=== PATIENT | female | born 1960 | race Caucasian/White ===

== ENCOUNTER → 2016-11-24 | Outpatient (CLI) | payer BC, OTHER ==
[~2016-11-24] MED LIST: BND25 PO; HYDR12.56 PO; NRN/300 PO; TRMO115 TOP
== END | disposition home or self-care (01) ==
LOC: C.LABSPEC 12:46
PROVIDERS: ATTEND Dermatology
DX: R21 Rash and other nonspecific skin eruption (principal)

== ENCOUNTER → 2016-12-07 | Outpatient (CLI) | payer BC, OTHER ==
--- NOTE | 2016-12-08 14:24 | MAMMOGRAPHY REPORT ---
BILATERAL DIGITAL SCREENING MAMMOGRAM TOMOSYNTHESIS WITH CAD: 12/07/2016 CLINICAL HISTORY: Routine screening. Patient has no complaints. TECHNIQUE: Breast tomosynthesis in addition to standard 2D mammography was performed. Current study was also evaluated with a Computer Aided Detection (CAD) system. COMPARISON: Comparison is made to exams dated: 07/02/2015 mammogram, 01/25/2014 mammogram, 12/21/2012 m ammogram, 11/30/2010 mammogram, 11/19/2009 mammogram - [facility], and 10/21/2008. BREAST COMPOSITION: The tissue of both breasts is almost entirely fatty. FINDINGS: No suspicious mass, architectural distortion or cluster of microcalcifications is seen. IMPRESSION: ACR BI-RADS CATEGORY 1: NEGATIVE There is no mammographic evidence of malignancy. A 1 year screening mammogram is recommended. The p atient will receive written notification of the results. Approximately 10% of breast cancers are not detected with mammography. A negative mammographic repor t should not delay biopsy if a clinically suggestive mass is present. Alexia song/brea:12/07/2016 16:49:22 Jig And Fixture Repairer: Aster ROSA(R)(M)(BD), [facility] letter sent: Normal 1/2 BI-RADS Code: ACR BI-RADS Category 1: Negative
== END | disposition home or self-care (01) ==
LOC: C.MAMM 13:27
PROVIDERS: ATTEND Family Medicine
DX: Z12.31 Encounter for screening mammogram for malignant neoplasm of breast (principal)

== ENCOUNTER 2017-02-09 11:07 | Emergency (ER) | payer BC, OTHER ==
[~2017-02-09] VITALS: Ht 174 cm; Wt 107.2 kg
[2017-02-09 11:14] VITALS: TEMP 36.4; Ht 174 cm; Wt 107.2 kg
[2017-02-09 11:28] VITALS: O2SAT 95
[2017-02-09] MEDS ORDERED: FENTANYL CITRATE INJ 50 MCG/1 ML 2 ML VIAL IV STA (12:00)
[2017-02-09] MEDS ORDERED: HydrALAZINE HCL 20 MG/ML VIAL IV. STA (12:00)
[2017-02-09] MEDS ORDERED: NRN/300 PO (12:07)
[2017-02-09] MEDS ORDERED: TRMO115 TOP (12:07)
[2017-02-09] MEDS ORDERED: BND25 PO (12:07)
--- NOTE | 2017-02-09 12:19 | EMERGENCY ROOM VISIT NOTE ---
History Report prepared by Annabelle: Donte Saul Under the Supervision of: Dr. Renee Land M.D. First contact with patient: 11:45 Chief Complaint: HYPERTENSION Stated Complaint: ROSADO, HIGH BLOOD PRESSURE-TESTED AT SCHOOL History of Present Illness The patient is a 56 year old female who presents to the Emergency Room with complaints of persistent headache that she woke up with this morning. She also complains of pressure in her face. The patient also notes that her blood pressure was high and the school nurse recommended she present to the ED for further evaluation. The patient was recently admitted and discharged from [facility] because her hands had turned blue and were progressively worsening. They did a CT scan of her chest there which shower a normal thoracic aorta, no PE, and was essentially a normal scan. She denies pain in her hands and feet at this time. The patient is currently being treated for a persistent 6-month rash which is being treated with dapsone and gabapentin. The patient also notes that her stool has been yellow-colored which she thinks might be a side effect of the medication. She denies chest pain, back pain or shortness of breath at this time. Source of History: patient Onset: this morning Position: head Timing: other (persistent) Associated Symptoms: + rash, No SOB, No back pain, No chest pain Note: Other associated symptoms: high blood pressure, hands turning blue Review of Systems See HPI for pertinent positives & negatives. A total of 10 systems reviewed and were otherwise negative. Past Medical & Surgical Medical Problems: (1) Asthma (2) Bronchitis (3) Gastritis Family History Diabetes mellitus FH: cancer FH: heart disease Social History Smoking Status: Never Smoker Alcohol Use: none Housing Status: lives with family Occupation Status: employed Current/Historical Medications Scheduled Diphenhydramine Hcl (Benadryl), 25 MG PO Q4H Gabapentin (Neurontin), 300 MG PO HS Hydrochlorothiazide (Hctz), 1 CAP PO DAILY Triamcinolone Acet (Triamcinolone Acetonide), 1 APPLN TOP BID Allergies Coded Allergies: Aspirin (Unverified Allergy, Severe, sob, 02/09/17) NSAIDs (Unverified Allergy, Severe, sob, 02/09/17) Naproxen (Unverified Allergy, Severe, sob, 02/09/17) Physical Exam Vital Signs Date Time Temp Pulse Resp B/P Pulse Ox O2 Delivery O2 Flow Rate FiO2 3/22/17 15:03 76 18 136/85 97 02/09/17 14:04 76 18 116/73 96 Room Air 02/09/17 13:32 77 18 130/70 98 Room Air 02/09/17 13:28 76 02/09/17 12:54 78 18 126/77 96 Room Air 02/09/17 12:34 78 18 105/70 93 Room Air 02/09/17 12:31 69 18 116/78 97 Room Air 02/09/17 11:32 80 18 164/112 99 Room Air 02/09/17 11:31 87 02/09/17 11:28 95 Room Air 02/09/17 11:14 36.4 76 18 170/116 96 Room Air Physical Exam Vital signs reviewed. General: Well-appearing female, in no significant distress. HEENT: No scleral icterus, PERRLA, neck supple. Atraumatic. Cardiovascular: Noted to be hypertensive, no extra sounds. Pulmonary: Clear to auscultation bilaterally, normal work of breathing. Abdomen: Soft, nontender, nondistended, positive bowel sounds. Musculoskeletal: Atraumatic, no peripheral edema. Neurologic: Patient awake alert and oriented x 3, full strength in all 4 extremities. Cranial nerves 2 through 12 grossly intact. Skin: Warm, dry, no rash, mildly cyanotic bilateral digits, cool to touch with normal capillary refill. Medical Decision & Procedures ER Provider Diagnostic Interpretation: X-ray results as stated below per my interpretation and radiologist interpretation. Other radiology results as stated below per my review and radiologist interpretation: HEAD CT NONCONTRAST CT DOSE: 687.98 mGy.cm HISTORY: Headache. Hypertension. TECHNIQUE: Multiaxial CT images of the head were performed without the use of intravenous contrast. Automated exposure control was utilized for this study. Comparison: None. Findings: There is a small retention cyst within the left sphenoid sinus. No fluid levels within the paranasal sinuses. The The calvarium and skull base are intact. The ventricles and sulci are within normal limits. There is no mass, hematoma, midline shift, or acute infarct. Incidental note is made of a cavum septa pellucida. Impression: No acute intracranial abnormality. Electronically signed by: Bib Duncan M.D. 02/09/2017 1:06 PM Dictated Date/Time: 02/09/2017 12:56 PM CHEST ONE VIEW PORTABLE CLINICAL HISTORY: HTN dyspnea COMPARISON STUDY: No previous studies for comparison. FINDINGS: Subtle interstitial infiltrate left lung base. Lungs otherwise appear clear. No evidence for cardiac enlargement. Diaphragms smooth. IMPRESSION: Minimal interstitial infiltrate left lung base Electronically signed by: Sim Damon M.D. 02/09/2017 12:20 PM Dictated Date/Time: 02/09/2017 12:19 PM Laboratory Results 02/09/17 12:40 Red Blood Count 4.53, Mean Corpuscular Volume 90.9, Mean Corpuscular Hemoglobin 30.9, Mean Corpuscular Hemoglobin Concent 34.0, Mean Platelet Volume 11.1, Neutrophils (%) (Auto) 74.2, Lymphocytes (%) (Auto) 13.8, Monocytes (%) (Auto) 7.2, Eosinophils (%) (Auto) 4.1, Basophils (%) (Auto) 0.4, Neutrophils # (Auto) 5.07, Lymphocytes # (Auto) 0.94, Monocytes # (Auto) 0.49, Eosinophils # (Auto) 0.28, Basophils # (Auto) 0.03 02/09/17 11:25 Test 02/09/17 11:25 02/09/17 12:40 02/09/17 12:51 Anion Gap 8.0 mmol/L (3-11) Est Creatinine Clear Calc Drug Dose 82.2 ml/min Estimated GFR () 73.5 Estimated GFR (Non- 63.4 BUN/Creatinine Ratio 12.6 (10-20) Calcium Level 8.5 mg/dl (8.5-10.1) Magnesium Level 2.1 mg/dl (1.8-2.4) Total Bilirubin 0.9 mg/dl (0.2-1) Direct Bilirubin 0.2 mg/dl (0-0.2) Aspartate Amino Transf (AST/SGOT) 24 U/L (15-37) Alanine Aminotransferase (ALT/SGPT) 41 U/L (12-78) Alkaline Phosphatase 67 U/L (45-117) Total Creatine Kinase 93 U/L (26-192) Creatine Kinase MB 1.8 ng/ml (0.5-3.6) Creatine Kinase MB Ratio 1.9 (0-3.0) Total Protein 7.4 gm/dl (6.4-8.2) Albumin 3.8 gm/dl (3.4-5.0) White Blood Count 6.83 K/uL (4.8-10.8) Red Blood Count 4.53 M/uL (4.2-5.4) Hemoglobin 14.0 g/dL (12.0-16.0) Hematocrit 41.2 % (37-47) Mean Corpuscular Volume 90.9 fL (80-100) Mean Corpuscular Hemoglobin 30.9 pg (25-34) Mean Corpuscular Hemoglobin Concent 34.0 g/dl (32-36) Platelet Count 206 K/uL (130-400) Mean Platelet Volume 11.1 fL (7.4-10.4) Neutrophils (%) (Auto) 74.2 % Lymphocytes (%) (Auto) 13.8 % Monocytes (%) (Auto) 7.2 % Eosinophils (%) (Auto) 4.1 % Basophils (%) (Auto) 0.4 % Neutrophils # (Auto) 5.07 K/uL (1.4-6.5) Lymphocytes # (Auto) 0.94 K/uL (1.2-3.4) Monocytes # (Auto) 0.49 K/uL (0.11-0.59) Eosinophils # (Auto) 0.28 K/uL (0-0.5) Basophils # (Auto) 0.03 K/uL (0-0.2) RDW Standard Deviation 45.5 fL (36.4-46.3) RDW Coefficient of Variation 13.6 % (11.5-14.5) Immature Granulocyte % (Auto) 0.3 % Immature Granulocyte # (Auto) 0.02 K/uL (0.00-0.02) Bedside Troponin I 0.000 ng/ml (0-0.045) Laboratory results per my review. Medications Administered Medications (Trade) Dose Ordered Sig/Stephanie Route Start Time Stop Time Status Last Admin Dose Admin Hydralazine HCl (HydrALAZINE INJ) 10 mg NOW STAT IV. 02/09/17 12:00 02/09/17 12:06 DC 02/09/17 12:26 10 MG Fentanyl Citrate (Fentanyl Inj) 100 mcg NOW STAT IV 02/09/17 12:00 02/09/17 12:06 DC 02/09/17 12:26 100 MCG ECG Indication: other Rate (beats per minute): 82 Rhythm: normal sinus Findings: no acute ischemic change, no ectopy ED Course 1156: Past medical records reviewed. The patient was evaluated in room A2. A complete history and physical examination was performed. 1200: Ordered Fentanyl Inj 100 mcg IV, Hydralazine HCl 10 mg IV. 1401: Upon reevaluation, the patient resting comfortably. I discussed findings with her. She verbalized agreement of the treatment plan. She was discharged home. Medical Decision Differential diagnoses: Aortic dissection, PE, Raynaud's phenomenon, autoimmune abnormality, infectious etiologies, hypertensive urgency, anxiety, or cardiac arrhythmia. This pt was evaluated and appeared to be in no distress. IV access was obtained and lab work was drawn. Records were obtained from the OSH regarding the pt's admission this week. CT scan of the chest was negative for PE and any aortic abnl. Pt lab work is fairly unremarkable today. After IV fentanyl and hydralazine, the pt seemed to appear improved. The cyanotic appearance of the hands diminished. I am thinking this is r/t HTN or a vasospasm. Case management has made an appt with rheumatology in follow up and pt has been started on HCTZ 12.5 mg daily. She was asked to see her PCP this week for BP recheck and med management. Pt will return to the ED for worsening of symptoms or any medical concerns. Impression Primary Impression: Hypertension Additional Impression: Headache Scribe Attestation The scribe's documentation has been prepared under my direction and personally reviewed by me in its entirety. I confirm that the note above accurately reflects all work, treatment, procedures, and medical decision making performed by me. Departure Information Dispostion Home / Self-Care Prescriptions Hydrochlorothiazide (HCTZ) 12.5 Mg Cap 1 CAP PO DAILY for 30 Days, #30 CAP 5 Refills Prov: Renee Land M.D. 02/09/17 Referrals Terence Ford DO (PCP) Forms HOME CARE DOCUMENTATION FORM, IMPORTANT VISIT INFORMATION, WORK / SCHOOL INSTRUCTIONS Patient Instructions [facility] Additional Instructions Diagnosis: Hypertension, headache Hydrochlorothiazide 12.5 mg once daily. Follow-up with your physician within one week for reevaluation and blood pressure management. Follow-up with rheumatology as scheduled by case management. Return to the ER for worsening of symptoms or any medical concerns. Problem Qualifiers Primary Impression: Hypertension Hypertension type: essential hypertension Qualified Codes: I10 - Essential ( primary) hypertension Additional Impression: Headache Headache type: tension-type Headache chronicity pattern: acute headache Intractability: not intractable Qualified Codes: G44.209 - Tension-type headache, unspecified, not intractable
--- NOTE | 2017-02-09 12:22 | DIAGNOSTIC IMAGING REPORT ---
CHEST ONE VIEW PORTABLE CLINICAL HISTORY: HTN dyspnea COMPARISON STUDY: No previous studies for comparison. FINDINGS: Subtle interstitial infiltrate left lung base. Lungs otherwise appear clear. No evidence for cardiac enlargement. Diaphragms smooth. IMPRESSION: Minimal interstitial infiltrate left lung base Electronically signed by: Sim Damon M.D. 02/09/2017 12:20 PM Dictated Date/Time: 02/09/2017 12:19 PM
[2017-02-09 12:28] LABS: BUN/CREATININE RATIO 12.6 (10-20); CALCIUM 8.5 mg/dl (8.5-10.1); MAGNESIUM 2.1 mg/dl (1.8-2.4); POTASSIUM 3.4 mmol/L (3.5-5.1)
[2017-02-09 12:33] LABS: CKMB/CK RATIO 1.9 (0-3.0)
[2017-02-09 12:52] LABS: BASO % 0.4 %; BASO ABS # 0.03 K/uL (0-0.2); COMPLETE YES; EOS % 4.1 %; HEMATOCRIT 41.2 % (37-47); IG% 0.3 %; LYMPH % 13.8 %; LYMPH ABS # 0.94 K/uL (1.2-3.4); MEAN CELL VOLUME 90.9 fL (80-100); MEAN CORPUSCULAR HEMOGLOBIN 30.9 pg (25-34); MEAN PLATELET VOLUME 11.1 fL (7.4-10.4); MONO % 7.2 %; NEUT % 74.2 %; PLATELET COUNT 206 K/uL (130-400); RED BLOOD COUNT 4.53 M/uL (4.2-5.4); WHITE BLOOD COUNT 6.83 K/uL (4.8-10.8)
--- NOTE | 2017-02-09 13:07 | DIAGNOSTIC IMAGING REPORT ---
HEAD CT NONCONTRAST CT DOSE: 687.98 mGy.cm HISTORY: Headache. Hypertension. TECHNIQUE: Multiaxial CT images of the head were performed without the use of intravenous contrast. Automated exposure control was utilized for this study. Comparison: None. Findings: There is a small retention cyst within the left sphenoid sinus. No fluid levels within the paranasal sinuses. The The calvarium and skull base are intact. The ventricles and sulci are within normal limits. There is no mass, hematoma, midline shift, or acute infarct. Incidental note is made of a cavum septa pellucida. Impression: No acute intracranial abnormality. Electronically signed by: Bib Duncan M.D. 02/09/2017 1:06 PM Dictated Date/Time: 02/09/2017 12:56 PM
[2017-02-09] MEDS ORDERED: HYDR12.56 PO (14:46)
[2017-02-09 15:03] VITALS: BP 136/85; PULSE 76; O2SAT 97
== END 2017-02-09 15:04 | disposition home or self-care (01) ==
LOC: C.EDB 11:08 → C.EDA 15:04
DX: I10 Essential (primary) hypertension (principal); G44.209 Tension-type headache, unspecified, not intractable; J45.909 Unspecified asthma, uncomplicated; K29.70 Gastritis, unspecified, without bleeding; Z83.3 Family history of diabetes mellitus; Z80.9 Family history of malignant neoplasm, unspecified; Z82.49 Family history of ischemic heart disease and other diseases of the circulatory system; Z79.899 Other long term (current) drug therapy

== ENCOUNTER → 2017-07-16 | Outpatient (CLI) | payer BC, OTHER ==
[2017-07-19 17:45] LABS: GAMMA GLOBULIN 1.1 G/DL (0.8-1.7); TOTAL PROTEIN 6.7 G/DL (6.2-8.3)
== END | disposition home or self-care (01) ==
LOC: C.LAB 12:49
PROVIDERS: ATTEND Internal Medicine Rheumatology
DX: R76.8 Other specified abnormal immunological findings in serum (principal); R79.89 Other specified abnormal findings of blood chemistry

== ENCOUNTER → 2017-08-17 | Outpatient (CLI) | payer BC, OTHER ==
--- NOTE | 2017-08-17 15:30 | MAMMOGRAPHY REPORT ---
UNILATERAL LEFT DIGITAL DIAGNOSTIC MAMMOGRAM TOMOSYNTHESIS WITH CAD AND TARGETED LEFT ULTRASOUND: 07/23 CLINICAL HISTORY: 56-year-old woman presents with a new small round lump in the lower inner quadrant of the left breast. No skin changes or nipple discharge. TECHNIQUE: Left breast tomosynthesis in addition to standard 2D mammography was performed. Current st udy was also evaluated with a Computer Aided Detection (CAD) system. COMPARISON: Comparison is made to exams dated: 12/07/2016 mammogram, 07/02/2015 mammogram, 01/25/2014 ma mmogram, 12/21/2012 mammogram, 12/06/2011 mammogram, and 11/30/2010 mammogram - [facility]. BREAST COMPOSITION: The tissue of the left breast is almost entirely fatty. FINDINGS: A triangular palpable marker was placed on the skin overlying the lower inner quadrant of t he left breast, denoting the palpable lump pointed out by the patient. There is no evidence of a new suspicious mass, architectural distortion, asymmetry or cluster of microcalcifications in the left b reast. Targeted ultrasound was performed in the area of palpable lump pointed out by the patient, in the 6:3 0 to 7:00 left breast, 10 cm from the nipple. On palpation, there is soft nodular mobile tissue, mos t likely representing prominent fat lobules. On ultrasound, there is sonographically normal tissue w ithout evidence of a discrete solid or cystic mass. IMPRESSION: ACR BI-RADS CATEGORY 1: NEGATIVE, TARGETED ULTRASOUND ACR BI-RADS CATEGORY 1: NEGATIVE There is no suspicious mammographic or targeted sonographic abnormality in the lower inner quadrant o f the left breast to explain the new palpable lump pointed out by the patient. Overall, there is no mammographic or targeted sonographic evidence of malignancy. Continued clinical follow-up is recomme nded, as biopsy of a clinically suspicious mass should not be precluded by negative imaging. Otherwi se, recommend return to annual screening mammography schedule. Approximately 10% of breast cancers are not detected with mammography. A negative mammographic report should not delay biopsy if a clinically suggestive mass is present. Alexia Brandon M.D. ay/:08/17/2017 14:54:33 Waste Minimization Technician: Teresa Marrero, [facility] letter sent: Normal 1/2 BI-RADS Code: ACR BI-RADS Category 1: Negative Ultrasound BI-RADS: ACR BI-RADS Category 1: Negative
== END | disposition home or self-care (01) ==
LOC: C.MAMM 14:30
PROVIDERS: ATTEND Family Medicine
DX: N63 Unspecified lump in breast (principal)

== ENCOUNTER → 2017-12-19 | Outpatient (CLI) | payer BC, OTHER ==
[~2017-12-19] MED LIST changes: -BND25 PO; +DIPH25CA5 PO
--- NOTE | 2017-12-20 14:39 | MAMMOGRAPHY REPORT ---
BILATERAL DIGITAL SCREENING MAMMOGRAM TOMOSYNTHESIS WITH CAD: 12/19/2017 CLINICAL HISTORY: Routine screening. Patient has no complaints. TECHNIQUE: Breast tomosynthesis in addition to standard 2D mammography was performed. Current study was also evaluated with a Computer Aided Detection (CAD) system. COMPARISON: Comparison is made to exams dated: 08/17/2017 ultrasound, 08/17/2017 mammogram, 12/07/2016 mammogram, 07/02/2015 mammogram, 01/25/2014 mammogram, and 12/21/2012 mammogram - [facility] enter. BREAST COMPOSITION: The tissue of both breasts is almost entirely fatty. FINDINGS: No suspicious masses, calcifications, or areas of architectural distortion are noted in ei ther breast. There has been no significant interval change compared to prior exams. IMPRESSION: ACR BI-RADS CATEGORY 1: NEGATIVE There is no mammographic evidence of malignancy. A 1 year screening mammogram is recommended. The pa tient will receive written notification of the results. Approximately 10% of breast cancers are not detected with mammography. A negative mammographic report should not delay biopsy if a clinically suggestive mass is present. Antonia Zuñiga M.D. /:12/19/2017 16:00:53 Violin Mechanic: Liseth ROSA(Dequan)(M), [facility] letter sent: Normal 1/2 BI-RADS Code: ACR BI-RADS Category 1: Negative
== END | disposition home or self-care (01) ==
LOC: C.MAMM 15:34
PROVIDERS: ATTEND Family Medicine
DX: Z12.31 Encounter for screening mammogram for malignant neoplasm of breast (principal)

== ENCOUNTER 2018-01-20 19:50 | Emergency (ER) | payer BC, OTHER ==
[~2018-01-20] VITALS: Ht 174 cm; Wt 102.7 kg
[2018-01-20 19:57] VITALS: TEMP 36.8; Ht 174 cm; Wt 102.7 kg
[2018-01-20] MEDS ORDERED: ALBUT/IPRATROP 3MG/0.5MG NEB 3 ML VIAL INH STA (20:30)
[2018-01-20] MEDS ORDERED: BENZONATATE 100MG CAP PO ONE (20:30)
[2018-01-20] MEDS ORDERED: ACETAMINOPHEN 500 MG TAB PO STA (20:30)
[2018-01-20] MEDS ORDERED: COUGH DROP (SUGAR FREE) LOZ 24 LOZ/1 BOX LOZ STA (20:30)
--- NOTE | 2018-01-20 20:33 | EMERGENCY ROOM VISIT NOTE ---
History Report prepared by Annabelle: Darwin Jones Under the Supervision of: Dr. Mario Alberto Cortes M.D. First contact with patient: 20:05 Chief Complaint: COUGH Stated Complaint: COUGH History of Present Illness The patient is a 57 year old white female with a past medical history of asthma , ACL repair, and bronchitis who presents to the ED with a cc of a constant cough beginning four days ago. Pt has been on Augmentin for the past four days. Pt has tried her inhaler, Mucinex, and cough syrup, nothing makes her symptoms better. Positive shortness of breath after a coughing spell, coughing up yellow phlegm. Negative nausea, vomiting, coughing up blood, a history of smoking, pain in her legs, swelling in her legs, chest pain, a history of blood clots, fevers. Pt did have diarrhea, and she attributes it to her Augmentin. Source of History: patient Onset: 4 days ago Position: other (respiratory) Quality: other (mildly productive with yellow phlegm) Timing: constant Associated Symptoms: + SOB (after coughing spell), + diarrhea (attributed to her Augmentin), No fevers, No chest pain, No nausea, No vomiting Note: Denies: coughing up blood, pain in legs, swelling in legs Review of Systems See HPI for pertinent positives and negatives. A total of ten systems were reviewed and were otherwise negative. Past Medical & Surgical Medical Problems: (1) Asthma (2) Bronchitis (3) Gastritis Family History Diabetes mellitus FH: cancer FH: heart disease Heart disease Lung disease Social History Smoking Status: Never Smoker Smokeless Tobacco Use: No Alcohol Use: occasionally Marital Status: Housing Status: lives with family Occupation Status: employed Current/Historical Medications Scheduled Azithromycin (Zithromax), 250 MG PO DAILY Cetirizine (Zyrtec), 10 MG PO DAILY Scheduled PRN Hydrocodone W/ Homatropine (Hycodan 5/1.5MG 5 Ml), 5 ML PO Q6H PRN for Cough Ibuprofen (Motrin), 600 MG PO Q6H PRN for Pain Allergies Coded Allergies: Aspirin (Unverified Allergy, Severe, sob, 01/20/18) NSAIDs (Unverified Allergy, Severe, sob, 01/20/18) Naproxen (Unverified Allergy, Severe, sob, 01/20/18) Physical Exam Vital Signs Date Time Temp Pulse Resp B/P (MAP) Pulse Ox O2 Delivery O2 Flow Rate FiO2 01/20/18 22:08 85 18 136/87 98 01/20/18 20:42 97 Room Air 01/20/18 20:41 83 01/20/18 19:57 36.8 85 18 164/93 97 Room Air Physical Exam GENERAL: Awake, alert, well-appearing, NAD HENT: Normocephalic, atraumatic. EYES: Normal conjunctiva. Sclera non-icteric. NECK: Supple. No nuchal rigidity. FROM. RESPIRATORY: CTAB, no rhonchi, wheezing, crackles CARDIAC: RRR, no MRG ABDOMEN: Soft, NTND, BS+ MSK: No chest wall TTP, no LE edema NEURO: GCS 15, CN 2-12 intact, moves all 4s on command SKIN: No rash or jaundice noted. Medical Decision & Procedures ER Provider Diagnostic Interpretation: X-ray: Per my interpretation, radiologist review. CHEST ONE VIEW PORTABLE HISTORY: 57 years-old Female CHEST PAIN acute atypical chest pain COMPARISON: Chest radiograph 02/09/2017 TECHNIQUE: Portable AP view of the chest FINDINGS: Cardiomediastinal and hilar silhouettes are within normal limits. There is no pneumothorax, pleural effusion, focal airspace consolidation or overt pulmonary edema. Bones of the chest appear grossly intact. Small bilateral rudimentary cervical ribs redemonstrated. IMPRESSION: 1. No acute process. 2. Small bilateral cervical ribs. The above report was generated using voice recognition software. It may contain grammatical, syntax or spelling errors. Electronically signed by: Ethan Rodriguez M.D. 01/20/2018 8:49 PM Dictated Date/Time: 01/20/2018 8:47 PM Medications Administered Medications (Trade) Dose Ordered Sig/Stephanie Route Start Time Stop Time Status Last Admin Dose Admin Acetaminophen (Tylenol Tab) 1,000 mg NOW STAT PO 01/20/18 20:30 01/20/18 20:32 DC 01/20/18 20:39 1,000 MG Menthol (Nice Tracy) 1 tracy NOW STAT TRACY 01/20/18 20:30 01/20/18 20:32 DC 01/20/18 20:40 1 TRACY Benzonatate (Tessalon Perles Cap) 100 mg NOW ONCE PO 01/20/18 20:30 01/20/18 20:32 DC 01/20/18 20:40 100 MG Albuterol/ Ipratropium (Duoneb) 3 ml ONE STAT INH 01/20/18 20:30 01/20/18 20:32 DC 01/20/18 20:40 3 ML Azithromycin (Zithromax Tab) 500 mg NOW ONCE PO 01/20/18 21:00 01/20/18 21:01 DC 01/20/18 20:55 500 MG ECG Per My Interpretation Indication: SOB/dyspnea Rate (beats per minute): 77 Rhythm: normal sinus Findings: no ectopy, other (Normal axis. Normal intervals. No STS or TWI.) ED Course 2019: The patient was evaluated in room B07. A complete history and physical exam was performed. 2120: I reevaluated the patient. Discussed results and discharge instructions: she verbalized understanding and agreement. The patient is ready for discharge. Medical Decision The patient is a 57 year old white female with a past medical history of asthma , ACL repair, and bronchitis who presents to the ED with a cc of a constant cough beginning four days ago. Differential diagnosis: Etiologies such as infections, reactive airway disease, pneumonia, pneumothorax , COPD, CHF, cardiac ischemia, pulmonary embolism, musculoskeletal, gastrointestinal, as well as others were entertained. Patient was seen and evaluated the bedside. Patient had been complaining of some cough. Patient states that she had had some productive sputum and is recently started on Augmentin. Patient has tried taking [id number] medications for cough but this is not proved. The patient has not been getting much sleep. Patient denies any exertional symptoms. Patient denies any lower extremity swelling or prior history of DVT or PE. On exam the patient is very well-appearing. Patient is afebrile with stable vital signs. Patient did have a chest x-ray which is negative acute. Patient's EKG is nonischemic. I believe that this most likely infectious in nature. ACS and PE are less likely. Patient was feeling mildly improved after her treatment. Patient was told to continue [id number] medications. She was started on azithromycin for possible atypical coverage. Patient was told to continue her Augmentin. Patient was deemed suitable for outpatient follow-up and treatment at this time. Patient was given strict follow-up, discharge, and return precautions. All questions were answered. Patient was deemed suitable for outpatient follow- up at this time. Patient agreed with the plan of care and was safely discharged home. Medication Reconcilliation Current Medication List: was personally reviewed by me Blood Pressure Screening Patient's blood pressure: Elevated blood pressure Blood pressure disposition: Referred to PCP Impression Primary Impression: Cough Additional Impression: Acute bronchitis Scribe Attestation The scribe's documentation has been prepared under my direction and personally reviewed by me in its entirety. I confirm that the note above accurately reflects all work, treatment, procedures, and medical decision making performed by me. Departure Information Dispostion Home / Self-Care Prescriptions Hydrocodone W/ Homatropine (HYCODAN 5/1.5MG 5 ML) 1 Syp Syp 5 ML PO Q6H Y for Cough, #60 ML Prov: Mario Alberto Cortes M.D. 01/20/18 Azithromycin (Zithromax) 250 Mg Tab 250 MG PO DAILY, #4 TAB Prov: Mario Alberto Cortes M.D. 01/20/18 Referrals Terence Ford DO (PCP) Forms HOME CARE DOCUMENTATION FORM, IMPORTANT VISIT INFORMATION Patient Instructions Bronchitis Acute, Coughing Techniques, My [facility] [email or web address] Additional Instructions Please return to the emergency department if you have worsening or recurrent symptoms not amenable to at-home treatment. Please call for a follow-up appointment with her primary care physician. Please take your medications as prescribed. If you have other concerns and/or complaints please feel free to also call your primary care physician's office or return the ED for further evaluation, management, and treatment. You were found to have an elevated blood pressure today (>120 sytolic or >90 diastolic). Per medicare guidelines, you need to follow up with this blood pressure screening with your Primary Care Physician (PCP). For a new PCP call [phone]. You received narcotic or benzodiazepene medication while in the emergency room today. This is an addictive medication that may cause drowziness as well as constipation. Do not drive, operate heavy machinery, or drink alcohol under the influence of this medication. You may take 600 mg Ibuprofen every 6 hours as needed for pain with food for no more than 2 consecutive days. You may take tylenol 1000 mg every 6 hours as needed for pain. You may take motrin and tylenol separately or at the same time. You may also take Tessalon Perles or Cepacol as a cough suppressant. He may use Mucinex as an expectorant. Take your medications as prescribed. If taking an antibiotic consider taking a probiotic and/or eating yogurt, but at the least, please take with food as it can cause upset stomach. You have been examined and treated today on an emergency basis only. This is not a substitute for, or an effort to provide, complete comprehensive medical care. It is impossible to recognize and treat all injuries or illnesses in a single emergency department visit. It is therefore important that you follow up closely with [facility], your PCP, and/or your specialist(s). Call as soon as possible for an appointment. Thank you for your time and consideration. I look forward to speaking with you again soon. Please don't hesitate to call us if you have any questions. Problem Qualifiers Additional Impression: Acute bronchitis Bronchitis organism: unspecified organism Qualified Codes: J20.9 - Acute bronchitis, unspecified
[2018-01-20 20:42] VITALS: O2SAT 97
[2018-01-20] MEDS ORDERED: IBUP-1450 PO (20:48)
[2018-01-20] MEDS ORDERED: CETI10TA84 PO (20:48)
--- NOTE | 2018-01-20 20:50 | DIAGNOSTIC IMAGING REPORT ---
CHEST ONE VIEW PORTABLE HISTORY: 57 years-old Female CHEST PAIN acute atypical chest pain COMPARISON: Chest radiograph 02/09/2017 TECHNIQUE: Portable AP view of the chest FINDINGS: Cardiomediastinal and hilar silhouettes are within normal limits. There is no pneumothorax, pleural effusion, focal airspace consolidation or overt pulmonary edema. Bones of the chest appear grossly intact. Small bilateral rudimentary cervical ribs redemonstrated. IMPRESSION: 1. No acute process. 2. Small bilateral cervical ribs. The above report was generated using voice recognition software. It may contain grammatical, syntax or spelling errors. Electronically signed by: Ethan Rodriguez M.D. 01/20/2018 8:49 PM Dictated Date/Time: 01/20/2018 8:47 PM
[2018-01-20] MEDS ORDERED: AZITHROMYCIN 250 MG TAB PO ONE (21:00)
[2018-01-20] MEDS ORDERED: HYDR5SYP11 PO (21:54)
[2018-01-20] MEDS ORDERED: AZIT250T PO (21:54)
[2018-01-20 22:08] VITALS: BP 136/87; PULSE 85; O2SAT 98
== END 2018-01-20 22:03 | disposition home or self-care (01) ==
LOC: C.EDB 19:51
DX: J20.9 Acute bronchitis, unspecified (principal); Z83.3 Family history of diabetes mellitus; Z80.9 Family history of malignant neoplasm, unspecified; Z79.899 Other long term (current) drug therapy; Z88.6 Allergy status to analgesic agent